=== PATIENT | male | born 1995 | race Caucasian/White ===

== ENCOUNTER 2017-09-27 19:31 | Emergency (ER) | payer OTHER ==
[2017-09-27] MEDS: LORAZEPAM 1 MG TAB PO (21:16)
[2017-09-27] MEDS: KETOROLAC 60 MG INJ IM (21:17)
== END 2017-09-27 22:24 | disposition home or self-care (01) ==
LOC: FTE 19:31
DX: M43.6 Torticollis (principal)
CPT/HCPCS: 96372; 99284-25